=== PATIENT | male | born 1965 | race Caucasian/White ===

== ENCOUNTER 2016-10-24 14:08 | Emergency (ER) | payer OTHER ==
[~2016-10-24] VITALS: Ht 180.3 cm; Wt 138.6 kg
[2016-10-24 14:20] VITALS: BP 151/95; PULSE 91; RESP 20; O2SAT 98
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
[2016-10-24] MEDS ORDERED: Ketorolac 30 mg/mL 2 mL Inj IM ONE (16:45)
== END 2016-10-24 17:11 | disposition home or self-care (01) ==
LOC: SED 14:08 → EDBD 14:08 → EDUNIT# 14:08 → SED 17:11
DX: S93.402A Sprain of unspecified ligament of left ankle, initial encounter (principal); Y04.0XXA Assault by unarmed brawl or fight, initial encounter; Y92.009 Unspecified place in unspecified non-institutional (private) residence as the place of occurrence of the external cause; Y93.89 Activity, other specified; Y99.8 Other external cause status; E11.9 Type 2 diabetes mellitus without complications; F17.200 Nicotine dependence, unspecified, uncomplicated; Z98.890 Other specified postprocedural states
CPT/HCPCS: 73610; 96372; 99284; J1885

== ENCOUNTER 2016-10-27 15:41 | Emergency (ER) | payer OTHER ==
[~2016-10-27] VITALS: Ht 182.9 cm; Wt 138.6 kg
[2016-10-27 15:47] VITALS: BP 170/99; PULSE 90; RESP 20; O2SAT 96
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
[2016-10-27 17:25] LABS: BASOPHILS % (AUTO) 0.2 % (0-3); EOSINOPHILS % (AUTO) 0.2 % (0-5); MONOCYTES % (AUTO) 5.5 % (4-12); Mean Corpuscular Hemoglobin 32.4 pg (27.0-35.0); Mean Corpuscular Volume 94.1 fL (81-100); NEUTROPHILS % (AUTO) 74.8 % (40-74); Platelet Count 266 bil/L (150-400)
[2016-10-27 20:06] VITALS: BP 148/72; PULSE 78; RESP 16; O2SAT 95
[2016-10-27] MEDS ORDERED: PRAZ5CAP3 PO (23:42)
[2016-10-27] MEDS ORDERED: ALBU8.5H2 INHALATION (23:42)
[2016-10-27] MEDS ORDERED: IBUP400T22 PO (23:42)
[2016-10-27] MEDS ORDERED: PARO10OR3 PO (23:42)
[2016-10-27] MEDS ORDERED: QUET400T PO (23:42)
[2016-10-27] MEDS ORDERED: FLUT9.9S NS (23:42)
[2016-10-27] MEDS ORDERED: METF500T4 PO (23:42)
[2016-10-27] MEDS ORDERED: LAMO150T PO (23:42)
[2016-10-28] MEDS ORDERED: KLO1T PO (17:37)
[2016-10-28] MEDS ORDERED: PARO30TA4 PO (17:37)
[2016-10-28] MEDS ORDERED: GABA600T2 PO (17:40)
[2016-10-28] MEDS ORDERED: CYCL10TA9 PO (17:40)
[2016-10-28] MEDS ORDERED: IBUP800T28 PO (17:41)
== END 2016-10-27 20:08 | disposition home or self-care (01) ==
LOC: SED 15:41
DX: F43.0 Acute stress reaction (principal); R45.851 Suicidal ideations; E11.9 Type 2 diabetes mellitus without complications; F17.200 Nicotine dependence, unspecified, uncomplicated; Z59.0 Homelessness
CPT/HCPCS: 36415; 80053; 81002; 84443; 85025; 99284; G0480

== ENCOUNTER 2016-10-27 22:16 | Inpatient (IN) | payer MEDICAID, OTHER ==
[~2016-10-27] VITALS: Ht 185.4 cm; Wt 140.5 kg
[2016-10-27 22:22] VITALS: BP 184/99; PULSE 91; RESP 24; O2SAT 98
--- NOTE | 2016-10-27 22:34 | ED.REPORT ---
HPI-Overdose/Alcohol Toxicity Date of Service Oct 27, 2016 ED Provider: Caleb Mckenna DO Patient is a 51 year old male who was seen and discharged from the ED to the waiting room just hours earlier. When a personnel security assistant told him he could no longer stay in the waiting room, he opened his bottle of Seroquel and took approximately 15, 400 mg tablets while in the waiting room. He denies drinking but endorses smoking cigarettes. Nursing Notes Stated Complaint: SUICIDAL Chief Complaint: Psychiatric Complaint Nursing Notes Reviewed: Yes Allergies: Coded Allergies: No Known Allergies (Unverified , 07/06/16) Scheduled Fluticasone Propionate (Flonase Allergy Relief) 50 Mcg/Actuation Minetto.susp 1 SPRAY NS DAILY Lamotrigine (Lamictal) 150 Mg Tablet 150 MG PO BID Metformin (Metformin) 500 Mg Tablet 500 MG PO BIDWM Paroxetine (Paxil) 10 Mg/5 Ml Oral.susp 30 MG PO MORNING Prazosin (Prazosin) 5 Mg Capsule 5 MG PO HS Quetiapine Fumarate (Seroquel) 400 Mg Tablet 400 MG PO HS Scheduled PRN Albuterol HFA (Proair HFA) 8.5 Gm Hfa.aer.ad 2 PUFFS INHALATION Q4H PRN PRN For Shortness of Breath Ibuprofen (Ibuprofen) 400 Mg Tablet 400 MG PO QID PRN PRN For Pain General Time Seen by Provider: 22:32 Chief Complaint Ingestion, drug and amt Hx Obtained From: Patient Arrived By: Walk-in Onset Occurred: Just prior to arrival Recent Healthcare: Recent doctor visit Past Medical History Past Medical History Notes: ankle surgery Past Medical History Mental health Reports: Diabetes mellitus Past Surgical History ankle surgery L leg repair x2 Smoking History Current Every Day Smoker Social History does [facility] Alcohol Use: Denies alcohol use Drug Use: THC Occupation no work or school, lives with roommate,1 step into the house. Ambulatory Status Crutches Review of Systems Unable to Obtain ROS Mental status Physical Exam Initial Vital Signs Vital Signs (First) Date Time Temp Pulse Resp B/P Pulse Ox O2 Delivery O2 Flow Rate FiO2 10/27/16 22:22 36.9 91 24 184/99 98 Room Air Initial VS: Reviewed Head / Eyes: Atraumatic, Normocephalic Neck: Full range of motion Alertness: Positive: Somnolent Appearance / Presentation: Positive: Obese, Toxic appearing Hypotensive Respiratory / Chest: Atraumatic Heart Rate / Rhythm: Positive: Tachycardia Abdomen: Soft, Non-tender Mental Status: Positive: Somnolent Abnormal Thinking / Perception: Positive: Suicidal, with plan Patient consumed approx. 15, 600 mg seroquel Color / Condition: Positive: Diaphoresis present Interpretation & Diagnostics Lab Results Interpretation Result Diagram: 10/27/16224410/27/162244 Test 10/27/16 22:45 10/27/16 23:55 White Blood Count 9.3th/mm3 (3.8-10.1) Red Blood Count 5.16mil/mm3 (4.40-5.80) Hemoglobin 16.4g/dL (13.8-17.2) Hematocrit 48.0% (41.0-50.0) Mean Corpuscular Volume 93.0fL (81-100) Mean Corpuscular Hemoglobin 31.8pg (27.0-35.0) Mean Corpuscular Hemoglobin Concent 34.2% (32.0-37.0) Red Cell Distribution Width 13.4% (12.3-15.4) Platelet Count 278bil/L (150-400) Sodium Level 138mEq/L (134-144) Potassium Level 4.1mEq/L (3.5-5.2) Chloride Level 98mEq/L (97-108) Carbon Dioxide Level 23mmol/L (18-29) Blood Urea Nitrogen 17mg/dL (6-24) Creatinine 0.96mg/dL (0.76-1.27) Estimat Glomerular Filtration Rate 88mL/min (>59) Glucose Level 128mg/dL (60-99) Calcium Level 9.4mg/dL (8.5-10.1) Total Bilirubin 0.3mg/dL (0.0-1.2) Aspartate Amino Transf (AST/SGOT) 20U/L (0-50) Alanine Aminotransferase (ALT/SGPT) 26U/L (0-44) Alkaline Phosphatase 72U/L (25-150) Total Protein 7.8g/dL (6.4-8.4) Albumin 4.8g/dL (3.4-5.0) Salicylates Level 3.0ug/mL (30-250) Acetaminophen Level 15.0ug/mL Rx (10-25) Alcohol, Quantitative < 10mg/dL (0-10) Hold Urine Received (Received) ECG Interpretation ECG Interpretation: sinus tachycardia rate 126 QTC 504 Time: 22:52 Interpreted by: ED physician ABG Interpretation ABG Interpretation: pH 7.290 pCO2 46 pO2 91.8 cHCO3- 21.2 cBase -4.9 Exam Performed by: Allied health pract Exam Interpreted by: ED physician Procedures Intubation Time: 23:18 Procedure Performed by: ED physician Consent / Setup / Site Prep: No consent - emergent, Time-out performed, Oxygen administered, Pulse oximeter applied, cardiac monitor applied, Hand hygiene observed Patient Position: Sniff position Blade / ET Tube / Route: Greenwood scope Procedural Sedation/Analgesia: Sedation: Ketamine Neuromuscular Agent: Rocuronium ET Confirmation: BS equal, CXR Secured / Marked: Tube marked at ___ cm (24), Tube marked at teeth Complications: None Post-Procedure: Condition improved, Tolerated procedure well, Patient stable Re-Eval/Medical Decision Med Decision/Clinical Course Intentional Seroquel overdose has reported suicide attempt. Intubated due to rapid decline in mental status as well as vital sign instability, persistent tachycardia and hypotension. Hypotension and tachycardia improved after IV fluid therapy. Patient was intubated with ketamine and rocuronium. The plan will be to admit or transfer this patient for ongoing hemodynamic monitoring and clearance of his Seroquel. Re-Evaluation/Progress #1: Time of Eval: 23:04 Re-Evaluation/Progress Note: Rechecked patient. Pressure of 68. Re-Evaluation/Progress #2: Time of Eval: 23:53 Re-Evaluation/Progress Note: Rechecked patient. He is tolerating intubation well. Re-Evaluation/Progress #3: Time of Eval: 00:15 Re-Evaluation/Progress Note: Blood pressure 96 systolic heart rate down to 1:15, resting comfortably, will continue IV fluid therapy. Discharge & Departure Shift Change Sign-Out Patient Care Transferred: Yes Discussed Complaint(s): Yes Laboratory Evaluation: Ordered, not yet done Imaging Studies: Done, reviewed by me Additonal Information: Transfer of care to Dr. Lozada at 0015 Impression: Primary Impression: Suicide attempt by drug ingestion Additional Impression: Respiratory failure Referrals: [facility] ([facility]) Care Transferred to: [facility] Transferred at: 00:20 Crit Care Except Billable Proc Time Spent: 30-74 minutes Services Performed: Patient management by me, Time spent at bedside, Reviewing test results Critical Care Notes: acute overdose, intubated Scribe Attestation Portions of this note were transcribed by Fran Mulligan. I, Dr. Mckenna personally performed the history, physical exam and medical decision-making; I reviewed and confirmed the accuracy of the information in the transcribed note. Signed by: Fran Mulligan 10/28/2016, 0031 copies to: [facility] Caleb Mckenna DO Oct 27, 2016 22:34 FRAN MULLIGAN Oct 27, 2016 22:49
[2016-10-27] MEDS ORDERED: 0.9% Sodium Chloride 1,000 ML IV ONE ×2 (22:37→22:40)
[2016-10-27 22:54] LABS: Mean Corpuscular Hemoglobin 31.8 pg (27.0-35.0)
[2016-10-27] MEDS ORDERED: Benztropine 1 mg/mL 2 mL Inj IV ONE (23:05)
[2016-10-27] MEDS ORDERED: Ketamine 100 mg/mL 5 mL Inj IV ONE (23:10)
[2016-10-27] MEDS ORDERED: fentaNYL-PF 50 mCg/mL 2 mL Inj ONE (23:19)
[2016-10-27] MEDS ORDERED: fentaNYL 2,500 mCg/250 mL 2,500 MCG in IV Premix 1 EACH IV SCH (23:25)
[2016-10-27 23:30] VITALS: BP 108/54; PULSE 128; RESP 20; O2SAT 95
--- NOTE | 2016-10-27 23:41 | ABG ---
DateTimeAnalyzed 23:35:00 -_ pH ____7.290 - 7.350 7.450 pCO2 ___45.6__ -mmHg 35.0 45.0 pO2 ___91.8__ -mmHg 69.0 116 HCO3- ___21.2__ -mmol/L 22.0 26.0 ABE ___-4.9__ -mmol/L -2.0 2.0 tHb ___13.5__ -g/dL O2Hb ___91.2__ -% COHb ____5.3__ -% MetHb ____0.9__ -% sO2 ___97.2__ -% 25.0 FIO2 ___50.0__ -% PEEP ____5.0__ -cmH2O Set_RR ___20.0__ -b/min Vt __540.0__ -L Drawn By MK - Date/Time Notified____ 23:40:00 -_ Spontaneous_RR ___20.0__ -b/min Oxygen Device 1 VENTILATOR - Notified Whom dr oliva - B 763 -mmHg tO2 ___17.4__ -Vol% OrderingPhysicianInitials CR - Kushal test _Positive -
[2016-10-27] MEDS ORDERED: PARO10OR3 PO (23:42)
[2016-10-27] MEDS ORDERED: PRAZ5CAP3 PO (23:42)
[2016-10-27] MEDS ORDERED: ALBU8.5H2 INHALATION (23:42)
[2016-10-27] MEDS ORDERED: LAMO150T PO (23:42)
[2016-10-27] MEDS ORDERED: METF500T4 PO (23:42)
[2016-10-27] MEDS ORDERED: IBUP400T22 PO (23:42)
[2016-10-27] MEDS ORDERED: QUET400T PO (23:42)
[2016-10-27] MEDS ORDERED: FLUT9.9S NS (23:42)
[2016-10-27 23:59] VITALS: BP 89/43; PULSE 121; RESP 20; O2SAT 96
[2016-10-28] VITALS (21 sets, daily range): BP systolic 75–155; BP diastolic 45–90; PULSE 81–135; RESP 16–20; O2SAT 96–100
[2016-10-28] MEDS: 0.9% Sodium Chloride 1,000 ML IV SCH ×4 (00:09→23:53)
[2016-10-28] MEDS ORDERED: Propofol 10,000 mCg/mL 100 mL Inj ONE (01:19)
[2016-10-28] MEDS: Midazolam Inj 100 MG in IV Premix 1 EACH IV PRN ×2 (01:35→19:14)
[2016-10-28] MEDS: Norepineph 8,000 mCg/250 mL NS 8,000 MCG in IV Premix 1 EACH IV SCH ×2 (04:20→19:10)
[2016-10-28 05:54] LABS: APPEARANCE,URINE CLOUDY (CLEAR,HAZY); COLOR,URINE YELLOW (YELLOW); OCCULT BLOOD,URINE NEGATIVE (NEGATIVE); PH,URINE 5.5 (5.0-8.0); UROBILINOGEN,URINE NORMAL (NORMAL)
[2016-10-28] MEDS ORDERED: Rocuronium 10 mg/mL 5 mL Inj ONE (06:31)
[2016-10-28] MEDS ORDERED: Ketamine 10 mg/mL 20 mL Inj ONE (06:31)
--- NOTE | 2016-10-28 06:59 | NUR ---
Pt admitted to CCU at 0650hrs from ER Pt arrived from ER, is intubated, on the vent, FIO2 50%, PEEP 5 RR 20 TV 500. He is sedated on versed and fentanyl. HR is 94 SR RR 20, Sats 97% BP 92/51. He is restrained to protect lines and airway. Majano is insitu, as is OG.
[2016-10-28] MEDS ORDERED: 0.9% Sodium Chloride 500 ML IV PRN ×2 (07:29→09:35)
[2016-10-28] MEDS ORDERED: fentaNYL 2,500 mCg/250 mL 2,500 MCG in IV Premix 1 EACH IV PRN (07:29)
[2016-10-28] MEDS ORDERED: Ondansetron 2 mg/mL 2 mL Inj IVPUSH PRN (07:30)
[2016-10-28] MEDS ORDERED: Alum-Mag Hydrox-Simeth 30 mL Suspension PO PRN (07:30)
[2016-10-28] MEDS ORDERED: Senna-Docusate 8.6-50 mg Tablet PO PRN (07:30)
[2016-10-28] MEDS ORDERED: Polyethylene Glycol (PEG) 17 Gm Powder PO PRN (07:30)
[2016-10-28] MEDS ORDERED: fentaNYL-PF 50 mCg/mL 2 mL Inj IVPUSH PRN (07:30)
--- NOTE | 2016-10-28 08:11 | ABG ---
DateTimeAnalyzed 08:04:00 -_ pH ____7.354 - 7.350 7.450 pCO2 ___38.8__ -mmHg 35.0 45.0 pO2 146 -mmHg 69.0 116 HCO3- ___21.1__ -mmol/L 22.0 26.0 ABE ___-3.5__ -mmol/L -2.0 2.0 tHb ___13.0__ -g/dL O2Hb ___96.1__ -% COHb ____2.0__ -% MetHb ____1.0__ -% sO2 ___99.1__ -% 25.0 FIO2 ___45.0__ -% PEEP ____5.0__ -cmH2O Vt __550.0__ -L Drawn By RC - Date/Time Notified____ 08:10:00 -_ Spontaneous_RR ___18.0__ -b/min Oxygen Device 1 VENTILATOR - Notified By RC - Notified Whom CARLOS,HIEU MD -___ B 764 -mmHg tO2 ___17.8__ -Vol% Kushal test _Positive -
[2016-10-28] MEDS ORDERED: Famotidine Inj 50 ML IV SCH ×2 (08:30→09:32)
[2016-10-28] MEDS ORDERED: 0.9% Sodium Chloride 500 ML ONE (08:49)
--- NOTE | 2016-10-28 08:51 | DRSVH ---
PROCEDURE: X-RAY CHEST ONE VIEW, PORTABLE ([id number]) INDICATIONS: intubation TECHNIQUE: One view of the chest was acquired. COMPARISON: [facility], CR, XR CHEST 1VW (PORTABLE), 10/28/2016, 3:48. FINDINGS: Surgical changes and devices: ETT is in place tip projected 3.4 cm above the cheli. Lungs and pleura: Lung volumes are low the interstitium is prominent. No focal consolidation, pleura l effusion or pneumothorax. Mediastinum: Mediastinal contours appear normal. Heart size is normal. Bones and chest wall: No suspicious bony lesions. Overlying soft tissues appear unremarkable. IMPRESSION: 1. Placement of ETT. 2. Lung volumes are low interstitium is prominent. Developing mild edema cannot be excluded. Dictated by: Collins QUINTANA Interpreted: Gi Sanchez MD on 10/28/2016 at 8:49 Transcribed by: ORQUIDEA on 10/28/2016 at 8:50 Approved by: iG Sanchez M.D. on 10/28/2016 at 16:48
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
[2016-10-28] MEDS: Chlorhexidine 0.12% 15 mL Oral Solution MT SCH ×5 (10:24→23:53)
[2016-10-28] MEDS ORDERED: Sodium Chloride LOK Flush 10 mL Syringe IVFLUSH PRN ×2 (10:50)
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
--- NOTE | 2016-10-28 12:16 | NUR ---
Social Work: Screen D: Per EMR review, pt is a 51 year old male admitted for Seroquel overdose/Respiratory Failure. Pt is [facility] HO with [facility] Medicaid insurance. PCP is through [facility]. NOK is not listed. Advanced directives not on file. Readmit score not entered at this time. Pt was seen in [facility] ED on 10/27 by ED COMMUNITY DEVELOPMENT AIDE making vague statements about being suicidal however due to pt's lack of plan and imminent danger to self or others, pt was discharged. Pt was asked to leave by security and then intentionally ingested approximately 15, 400 mg tablets of Seroquel. Pt admitted with CCU and currently on mechanical ventilation after intentional overdose of Seroquel in the [facility] ED waiting area. Pt was recently kicked out of his home. Per ED COMMUNITY DEVELOPMENT AIDE note, pt's suicidality appeared to focus around housing issues however pt was not cooperative with COMMUNITY DEVELOPMENT AIDE's attempts to problem solve pt's issues with housing. See ED COMMUNITY DEVELOPMENT AIDE Neeraj hTomas's note from 10/27 for more information. A: Pt who is I at baseline; newly homeless P: Evolving; COMMUNITY DEVELOPMENT AIDE to follow up with pt post-extubation to provide resources and to complete discharge planning. ROGELIO Mccauley
--- NOTE | 2016-10-28 13:54 | NUR ---
NUTRITION ASSESSMENT Assess: 51 yo male admitted for overdosing on Seroquel. Pt was intubated in the ED d/t concern over lethargy and potential aspiration. Pt given charcoal. PMHx: No medical history available at this time. LABS: Gluc 128 MEDICATIONS: Norepi, Fentanyl DIET: NPO GI symptoms/stool: 0 BM recorded Skin integrity: Wilman 13 - No skin issues noted. ANTHROPOMETRICS: Current Wt: 144.3 kg BMI: 42.0 kg/m2 IBW: 80.9 kg ESTIMATED NEEDS: Vented Calories: 7689-3169 kcal/day (20-22 kcal/kg BW) Protein: 125-150 g/day (1.5-1.8 g/kg BW) Fluids: Approximately 1399-7456 ml/day (Approx. 1 ml/kcal/day) NUTRITION DIAGNOSIS: 1) Inadequate oral intake related to inability to consume sufficient energy as evidenced by current vent and NPO status. INTERVENTION: 1) Will recommend starting nutrition support if pt remains vented another 24-48 hrs. 2) If extubated, will follow dietary recommendations per ST. MONITOR/EVALUATE: NPO/vent status, GI, medications, wt, nutrition status, POC. Will continue to monitor per high nutritional risk guidelines. Addendum: 10/28/16 at [address] Student documentation reviewed and I agree with the above assessment. Helena Lerner, MS, RDN, CD
--- NOTE | 2016-10-28 14:00 | DRSVH ---
PROCEDURE: X-RAY CHEST ONE VIEW ([id number]) INDICATIONS: Catheter tip placement TECHNIQUE: One view of the chest was acquired. COMPARISON: [facility], CR, XR CHEST 1VW (PORTABLE), 10/28/2016, 3:48. FINDINGS: Surgical changes and devices: ETT tip projects 4.2 cm above the cheli. Nasogastric tube tip not wel l-seen but appears to traverse the GE junction. Right IJ CVL catheter tip projected over the mid sup erior vena cava Lungs and pleura: No pleural effusions or pneumothorax. Interstitium is prominent similar to prior examination. Mediastinum: Mediastinal contours appear normal. Heart size is normal. Bones and chest wall: No suspicious bony lesions. Overlying soft tissues appear unremarkable. IMPRESSION: 1. Support lines and tubes as above. 2. Interstitial opacity similar to prior examination suspect for mild pulmonary edema. Dictated by: Collins May RRA Interpreted: Gi Sanchez MD on 10/28/2016 at 13:58 Transcribed by: ORQUIDEA on 10/28/2016 at 14:00 Approved by: Gi Sanchez M.D. on 10/28/2016 at 17:04
--- NOTE | 2016-10-28 14:37 | NUR ---
OGT MDs wanted OGT to remain clamped, no to LIS. Discussed in rounds this morning.
--- NOTE | 2016-10-28 15:08 | PCM.HPMED ---
Subjective Date of Service Oct 28, 2016 Primary Provider: Admitting Physician: Erasmo Fernandez MD Primary Care Physician: [facility] Attending Physician: Erasmo Fernandez MD Admit Status: From the Emergency Department, Admit to [facility] Team Chief Complaint: 51-year-old male with chronic schizophrenia and homelessness presents with suicide gesture and acute toxic encephalopathy due to overdose of Seroquel, intubated for airway protection History of Present Illness: The patient presented to the emergency department on 10/28 with a complaints. He was assessed by emergency physician found to have no significant indication for hospitalization. He was upset about being discharged. He returned to the parking lot and was witnessed to ingest a bottle of pills. On closer examination he seems to have ingested 15 tablets of 200 mg Seroquel. He was treated emergently in the emergency department with gastric lavage and charcoal but developed acute encephalopathy with obtundation and hypotension. He was intubated for airway protection. He has required aggressive hydration and vasopressors for hemodynamic stability. Patient is unable to give history or review of systems. There are no family members or friends in attendance. Review of Systems: Patient unable to perform. Allergies Coded Allergies: No Known Allergies (Unverified , 07/06/16) Home Medications Albuterol inhaler Fluticasone nasal spray Ibuprofen when necessary Lamotrigine 150 mg twice a day Metformin 500 mg twice a day Paroxetine 30 mg daily Presence and 5 mg every at bedtime Quetiapine 400 mg daily at bedtime PMH # Type II diabetes mellitus - metformin # Suicide gesture - emergency department assessment for benzodiazepine overdose in 2016 # Psychiatric disorder of uncertain type - on antidepressant and antipsychotic medication # Lamotrigine use - presumed seizure disorder # Tobacco use disorder Family History Unobtainable Social History Smoking Status: Current Every Day Smoker Exam Vital Signs Vital Sign - Last Date Time Temp Pulse Resp B/P Pulse Ox O2 Delivery O2 Flow Rate FiO2 10/28/16 12:30 80 98/56 99 35 10/28/16 12:00 36.8 16 Mechanical Ventilator Intake and Output 10/27/16 10/27/16 10/28/16 Cumulative From/Thru 15:00 23:00 07:00 10/27/16 22:22 - 10/28/16 06:23 Intake Total 4000 ml 4000 ml Output Total 600 ml 600 ml Balance 3400 ml 3400 ml Intake IV Total 4000 ml 4000 ml Output Urine Total 600 ml 600 ml Exam General: Class III obesity, sedated in no acute distress HEENT: sclerae anicteric, oral mucosa moist Neck: Supple, no adenopathy Chest: Right subclavian CVC, Lungs: Generally clear to auscultation Cardiac: S1S2, no murmur Abdomen: BS normal, no rigidity or mass Extremities: 1+ edema of hands, none at ankles Neuro: Sedated unresponsive, pupils 2 mm do not constrict, reflexes diminished throughout, strength, coordination and sensory non-testable Lab and Diagnostics Labs Urine specific gravity 1.030, pH 5.5 Arterial blood gases: DateTimeAnalyzed 23:35:00 -_ pH ____7.290 - 7.350 7.450 pCO2 ___45.6__ -mmHg 35.0 45.0 pO2 ___91.8__ -mmHg 69.0 116 HCO3- ___21.2__ -mmol/L 22.0 26.0 ABE ___-4.9__ -mmol/L -2.0 2.0 tHb ___13.5__ -g/dL O2Hb ___91.2__ -% COHb ____5.3__ -% MetHb ____0.9__ -% sO2 ___97.2__ -% 25.0 FIO2 ___50.0__ -% DateTimeAnalyzed 08:04:00 -_ pH ____7.354 - 7.350 7.450 pCO2 ___38.8__ -mmHg 35.0 45.0 pO2 146 -mmHg 69.0 116 HCO3- ___21.1__ -mmol/L 22.0 26.0 ABE ___-3.5__ -mmol/L -2.0 2.0 tHb ___13.0__ -g/dL O2Hb ___96.1__ -% COHb ____2.0__ -% MetHb ____1.0__ -% sO2 ___99.1__ -% 25.0 FIO2 ___45.0__ -% . Result Diagram: 10/27/16224410/27/162244 X-Rays, CTs and MRIs PROCEDURE: X-RAY CHEST ONE VIEW, PORTABLE ([id number]) IMPRESSION: 1. Placement of ETT. 2. Lung volumes are low interstitium is prominent. Developing mild edema cannot be excluded. Dictated by: Collins QUINTANA Interpreted: Gi Sanchez MD on 10/28/2016 at 8:49 PROCEDURE: X-RAY CHEST ONE VIEW ([id number]) IMPRESSION: 1. Support lines and tubes as above, the right IJ CVL tube tip is again not well -seen. 2. Interstitial opacity similar to prior examination suspect for mild pulmonary edema. Dictated by: Collins QUINTANA Interpreted: Gi Sanchez MD on 10/28/2016 at 13: 58 . 12-lead ECG Sinus rhythm rate 80. Low voltage. VT interval 0.14. QTC reported 539, but T waves are poorly defined. Assessment & Plan 51-year-old man with probable chronic schizophrenia resents with suicide gesture and acute toxic encephalopathy due to quetiapine overdose # Toxic encephalopathy, acute. Quetiapine notorious for respiratory depression and hypotension. Gonzales pharmacology is alpha adrenergic blockade (hypotension) and anticholinergic effects (encephalopathy, visual disturbance, gut hypomotility, hyperthermia, urine retention, tachycardia), dopaminergic blockade (neuroleptic malignant, neuromuscular effects). Treatment is supportive. Activated charcoal was administered. Gastric lavage performed an EGD. - Monitor neurological status - Daily sedation holiday # Toxic respiratory depression, acute. - Intubation for respiratory airway protection - Pulmonary consult to management ventilator settings and progress toward breathing trials # Acute hypotension due to toxic autonomic dysfunction, acute. Blood pressure was 75/52. Subsequently received 6 L of fluid hydration. Initiated norepinephrine pressor support. - Continue aggressive crystalloid replacement - Continue norepinephrine, titrate pressors as tolerated - Monitor urine output; Majano catheter when necessary to maintain accurate I's and O's # Type II diabetes mellitus - Every 6 hours blood glucose; goal 140-200 - Correctional regular insulin at present - Switched to basal bolus when clinically stable # Psychiatry, Suicide gesture - Plan mental health assessment when patient has convalescent - hold psych meds # Possible QT prolongation. Current EKG is nondiagnostic due to low voltage. Typing is low risk for QTC prolongation related dysrhythmia - Telemetry monitoring - Avoid other QT prolonging drugs # Tobacco use - Nicotine patch # Possible seizure disorder - continue lamotrigine # Obesity class III - Appropriate nursing care and interventions # VTE prophylaxis - enoxaparin # Gastric prophylaxis - famotidine CODE STATUS is full. Patient is admitted to inpatient status in the the critical care unit due to acute respiratory failure and hypotension. Expected duration of inpatient care is greater than 48 hours. GI Prophylaxis: H2 lydia VTE Prophylaxis: Sub-Q Enoxaparin VTE Mechanical Devices: Intermittant Pneumatic CD Resuscitation Status: CPR: Attempt Resuscitation Time spent 60 minutes, personal review of radiology and EKG data, review of data with consultants. Scout Valente MD Oct 28, 2016 15:08
--- NOTE | 2016-10-28 16:00 | NUR ---
Sedation Increased Versed and Fentanyl due to patient waking with nursing care/turning and being extremely agitated. Kicking, pulling, and attempting to pull ET tube.
--- NOTE | 2016-10-28 16:10 | NUR ---
Diaphoretic Patient sweating at rest worsening with agitation. Cold cloth to forehead, fan on, and covers removed. Effective.
[2016-10-28] MEDS ORDERED: KLO1T PO (17:37)
[2016-10-28] MEDS ORDERED: PARO30TA4 PO (17:37)
[2016-10-28] MEDS ORDERED: CYCL10TA9 PO (17:40)
[2016-10-28] MEDS ORDERED: GABA600T2 PO (17:40)
[2016-10-28] MEDS ORDERED: IBUP800T28 PO (17:41)
--- NOTE | 2016-10-28 17:42 | NUR ---
Med rec Med rec completed based on [facility] report of recent meds pt. picked up since mid September. Of note, Clonazepam, gabapentin and cyclobenzaprine were added, and ibuprofen dose was changed from 400-800mg. I am unable to verify what pt. actually takes at home as he is nonverbal at present.
--- NOTE | 2016-10-28 17:46 | NUR ---
PCP PCP seems to be Radha Lobo - according to Pharmacy as most frequent prescriber. Phone number is [phone] according to [facility] records.
[2016-10-28] MEDS: lamoTRIgine 100 mg Tablet PO SCH (20:28)
[2016-10-28] MEDS: Insulin Human REGular 300 Unit/3 mL Inj SUBQ SCH (20:30)
[2016-10-28] MEDS ORDERED: Albuterol 2.5 mg/3 mL Inhalation Solution NEB PRN (21:55)
[2016-10-29] VITALS (10 sets, daily range): BP systolic 96–148; BP diastolic 55–85; PULSE 82–100; RESP 15–22; O2SAT 92–99
[2016-10-29] MEDS: Insulin Human REGular 300 Unit/3 mL Inj SUBQ SCH ×4 (02:30→17:16)
[2016-10-29] MEDS: Chlorhexidine 0.12% 15 mL Oral Solution MT SCH ×2 (04:13→07:51)
--- NOTE | 2016-10-29 04:29 | NUR ---
vent/sedation on initial assessment pt on versed gtt at 5mg/hr and fentanyl gtt at 100mcg/hr, pt lightly sedated on these sedation amounts, pt with strong cough/fights oral care/twists head back and forth/kei with small amounts of stimulation, pt very strong and at 2130 pt kicked foot board so hard it came dislodged from its place at foot of bed, pt was flushed red and pt fighting vent/pounding on side rails with hands and sliding down towards right end of bed, pt given 4mg versed bolus and fentanyl gtt increased to 150mcg/hr, pt still lightly sedated and awakens and fights oral care etc with sml amount of stimulation but if left alone pt remains calm, plan/order for sedation vacation and PS trial bid, will attempt to wean meds this am again, tele sr, bp low normal,see measurements on rhythm strips, adequate uop per f/c-rosita uop, cvp=11-16, ogt to lis with initial assessment, approx 100ml charcoal output noted, pharmacy states ok to have ogt to lis since charcoal only effective for so many hours, ogt placement=wnl, hob up, no bm, abd round/soft, bt present, .35 fio2 per vent, sats upper 90's, hob up, resp rate 16-20/16, ls course, sx sml amount of creamy sputum per ett, oral care done as pt tolerated, see ccu flow sheet and assessment charting, plan:decrease sedation and do ps trial
--- NOTE | 2016-10-29 06:18 | NUR ---
tital volumes pt over breathing vent this am, resp rate = 16-, tital volumes 500-600,
[2016-10-29] MEDS: lamoTRIgine 100 mg Tablet PO SCH ×2 (07:50→22:18)
[2016-10-29] MEDS: 0.9% Sodium Chloride 1,000 ML IV SCH ×2 (09:45→19:59)
--- NOTE | 2016-10-29 10:14 | ABG ---
DateTimeAnalyzed 10:08:00 -_ pH ____7.348 - 7.350 7.450 pCO2 ___45.3__ -mmHg 35.0 45.0 pO2 ___84.8__ -mmHg 69.0 116 HCO3- ___24.2__ -mmol/L 22.0 26.0 ABE ___-1.1__ -mmol/L -2.0 2.0 tHb ___12.7__ -g/dL O2Hb ___94.8__ -% COHb ____1.6__ -% MetHb ____1.0__ -% sO2 ___97.3__ -% 25.0 FIO2 ___35.0__ -% Pressure_Support ____5.0__ -cmH2O PEEP ____5.0__ -cmH2O Vt __550.0__ -L Drawn By NB - Date/Time Notified____ 10:13:00 -_ Spontaneous_RR ___16.0__ -b/min Oxygen Device 1 VENTILATOR - Notified By nb - Notified Whom ___Parimi - B 762 -mmHg tO2 ___17.0__ -Vol%
--- NOTE | 2016-10-29 11:16 | PROG NOTE ---
[address] [address] PROGRESS NOTE PATIENT: DEYSI SANDOVAL : 1965 MR#: [id number] ADMIT: 10/28/2016 JOB ID: [id number] DATE: 10/29/2016 PULMONARY CRITICAL CARE PROGRESS NOTE: IDENTIFYING STATEMENT: The patient is a 51-year-old man with history of homelessness and schizophrenia, admitted to the ICU with respiratory failure following an intentional Seroquel overdose. INTERVAL HISTORY: He is wide awake this morning, on minimal sedation, doing well on his spontaneous breathing trial. REVIEW OF SYSTEMS: Unable to obtain. PHYSICAL EXAMINATION: Vital signs reviewed. T-max is 37.7, pulse 88, respirations 16, BP 112/69, sats 97% on 35% FiO2. General: He is awake, eyes open, trying to follow commands but he is coughing a lot. Currently on spontaneous breathing trial. Chest is clear to auscultation. LABORATORIES: Reviewed from October 27. No labs have been checked since. Cultures negative on sputum and MRSA nasal swab. Chest x-ray reviewed and shows no focal abnormality. Arterial blood gas at the end of his spontaneous breathing trial showed pH of 7.34, pCO2 of 45, pO2 of 84, bicarb of 24. ASSESSMENT AND RECOMMENDATIONS: 1. Acute hypoxic respiratory failure. 2. Intentional Seroquel overdose. 3. Chronic schizophrenia. 4. Shock-resolved A 51-year-old man who is homeless with history of chronic schizophrenia with intentional Seroquel overdose on October 28, intubated subsequently for airway protection. He was on pressors briefly but this has resolved. He seems to have recovered from a neurologic standpoint, and is currently wide awake, passing a spontaneous breathing trial. Blood gas on spontaneous breathing trial looks great. We will go ahead and extubate him. We will see how he does postextubation and treat him as needed for any symptoms off psychosis or delirium. If he is stable otherwise, he may be okay to transfer to the floor later today or tomorrow. He is on appropriate deep venous thrombosis and gastrointestinal prophylaxis but certainly, the gastrointestinal prophylaxis can be stopped once he is extubated. CRITICAL CARE TIME: 35 minutes. [facility]
--- NOTE | 2016-10-29 11:33 | NUR ---
Evaluation completed. Please go to "Notes" then click on "Assessments and Notes" (bottom left corner of screen). Then select appropriate discipline tab on top of screen.
--- NOTE | 2016-10-29 12:30 | NUR ---
NUTRITION FOLLOW-UP: Assess: 51 yo male admitted with intentional Seroquel overdose. Pt was intubated in the ED d/t concern of lethargy and potential aspiration. He was successfully extubated this morning; diet advanced to stimulation texture by Speech Therapy. PMHx: No medical history available at this time. LABS: Glu 128, A1c 6.5. MEDICATIONS: Norepi. DIET: Stimulation. PO intake not yet recorded. GI symptoms/stool: 0 BM recorded Skin integrity: Wilman 14 - No skin issues noted. ANTHROPOMETRICS: Current Wt: 143.8 kg BMI: 41.0 kg/m2 IBW: 80.9 kg ESTIMATED NEEDS: CCU, OBESITY: Calories: 8050-7910 kcal/day (20-22 kcal/kg BW) Protein: 125-150 g/day (1.5-1.8 g/kg BW) Fluids: Approximately 5812-1933 ml/day (Approx. 1 ml/kcal/day) NUTRITION DIAGNOSIS: 1) Inadequate oral intake related to inability to consume sufficient energy as evidenced by current vent and NPO status - IMPROVED WITH EXTUBATION, MINIMAL DIET ADVANCE. INTERVENTION: 1) Once diet advance, will add supplements to trays. MONITOR/EVALUATE: Diet advance, PO intake, GI, medications, wt, nutrition status, POC. Will continue to monitor per high nutritional risk guidelines.
--- NOTE | 2016-10-29 13:52 | NUR ---
Evaluation completed. Please go to "Notes" then click on "Assessments and Notes" (bottom left corner of screen). Then select appropriate discipline tab on top of screen.
--- NOTE | 2016-10-29 15:19 | PCM.PNMED ---
Subjective Date of Service Oct 29, 2016 Subjective 51-year-old man with chronic psychiatric disorder presents with suicide overdose attempt with antipsychotic medications He was extubated after approximately 24 hours of intubation, today. He continues to verbalize intention of self-harm. States he is emotionally distressed. Majano catheter removed today. He has not voided yet but feels ready to do so. No abdominal distention or pain. Feels he is passing flatus. Complains of left ankle pain, which was previously evaluated in the emergency department. Exam Vital Signs Vital Sign - Last Date Time Temp Pulse Resp B/P Pulse Ox O2 Delivery O2 Flow Rate FiO2 10/29/16 12:00 36.6 84 22 135/78 97 Nasal Cannula 3.00 10/29/16 07:32 35 Intake and Output 10/28/16 10/28/16 10/29/16 Cumulative From/Thru 15:00 23:00 07:00 10/27/16 22:22 - 10/29/16 06:33 Intake Total 1289 ml 1680 ml 6969 ml Output Total 400 ml 750 ml 1750 ml Balance 889 ml 930 ml 5219 ml Intake IV Total 1289 ml 1680 ml 6969 ml Output Urine Total 400 ml 650 ml 1650 ml Gastric Drainage Total 100 ml 100 ml # Bowel Movements 0 0 Exam General: Disheveled, obese man in outer emotional distress HEENT: sclerae anicteric, oral mucosa moist Neck: Supple, difficult to assess JVD Chest: Generally clear to auscultation Cardiac: S1S2, regular, no murmur Abdomen: BS diminished, non-tender Extremities: No pedal edema, trace hand edema edema Neuro: A&O, cranial nerves symmetric, motor strength 5/5, coordination normal, no rigidity IVs and Medications Medications Reviewed: Medications were reviewed in detail Lab and Diagnostics Hemoglobin A1c 6.5% Result Diagram: 10/27/16224410/27/162244 X-Rays, CTs and MRIs PROCEDURE: X-RAY CHEST ONE VIEW, PORTABLE ([id number]) IMPRESSION: 1. Placement of ETT. 2. Lung volumes are low interstitium is prominent. Developing mild edema cannot be excluded. Dictated by: Collins QUINTANA Interpreted: Gi Sanchez MD on 10/28/2016 at 8:49 PROCEDURE: X-RAY CHEST ONE VIEW ([id number]) IMPRESSION: 1. Support lines and tubes as above, the right IJ CVL tube tip is again not well -seen. 2. Interstitial opacity similar to prior examination suspect for mild pulmonary edema. Dictated by: Collins May RRA Interpreted: Gi Sanchez MD on 10/28/2016 at 13: 58 . 12-lead ECG Sinus rhythm rate 80. Low voltage. TX interval 0.14. QTC reported 539, but T waves are poorly defined. Assessment & Plan 51-year-old man with probable chronic schizophrenia resents with suicide gesture and acute toxic encephalopathy due to quetiapine overdose # Psychiatry, Suicide attempt. Patient continues with self-harm ideation. - Psychiatry consult request placed - hold paroxetine and Seroquel - Medically ready for discharge to psychiatric care # Possible QT prolongation. Current EKG is nondiagnostic due to low voltage. Quetiapine is low risk for QTC prolongation related dysrhythmia - Okay to discontinue QT monitoring # Left ankle degenerative arthritis, chronic. X-rays from initial emergency room visit negative for fracture. Ankle had prior surgery due to trauma. Currently experiencing significant DJD related ankle pain. - Topical diclofenac - Oral ibuprofen - No opioid analgesics - Psychotherapy for recommendations regarding ambulation Chronic, stable and/or resolving problems: # Toxic encephalopathy, acute. Quetiapine notorious for respiratory depression and hypotension. Gonzales pharmacology is alpha adrenergic blockade (hypotension) and anticholinergic effects (encephalopathy, visual disturbance, gut hypomotility, hyperthermia, urine retention, tachycardia), dopaminergic blockade (neuroleptic malignant, neuromuscular effects). Treatment is supportive. Activated charcoal was administered. Gastric lavage performed an EGD. He now appears mildly diaphoretic with active bowel tones and intact mental status - No evidence of anticholinergic syndrome. No evidence of neuroleptic malignant syndrome - Resolved # Toxic respiratory depression, acute. Intubation for respiratory airway protection for ~24 hours. -Resolved # Acute hypotension due to toxic autonomic dysfunction, acute. Blood pressure was 75/52. Subsequently received 6 L of fluid hydration. Initiated norepinephrine pressor support. - Resolved # Type II diabetes mellitus - Every 6 hours blood glucose; goal 140-200 - Correctional regular insulin at present - Switched to basal bolus when clinically stable # Tobacco use - Nicotine patch # Possible seizure disorder - continue lamotrigine # Obesity class III - Appropriate nursing care and interventions # VTE prophylaxis - enoxaparin # Gastric prophylaxis - discontinue famotidine CODE STATUS is full. Patient was admitted to inpatient status in the the critical care unit due to acute respiratory failure and hypotension. Medical problems are now resolved and he is medically ready for discharge to psychiatric care. GI Prophylaxis: H2 lydia VTE Prophylaxis: Sub-Q Enoxaparin VTE Mechanical Devices: Intermittant Pneumatic CD Resuscitation Status: CPR: Attempt Resuscitation Time spent 40 minutes including patient care assessment and discussion of data with field technical support consultant Scout Valente MD Oct 29, 2016 15:19
--- NOTE | 2016-10-29 15:22 | NUR ---
Mental Health Evaluation Wilson Thompson 10/29/2016 Reason for Hospitalization: Seroquel Overdose/Respiratory Failure Precipitating Problem: Pt is a 51 year old male who presented to [facility] ED on 10/27/16 with suicidal ideation and vague thoughts of overdose. Pt reported that he had just been kicked out of his apartment and served with a no-contact order for his ex-girlfriend. Pt was presented with options for housing including the [facility] and the homeless shelters in [facility]; Pt declined these options. Pt stated that if he were to be discharged "something bad would happen" although he did not disclose an active plan or intent. Pt did not appear to be appropriate for inpatient hospitalization as his requests appeared to be focused around housing. Pt was discharged and asked to leave the waiting area by security staff. At that point, pt states he intentionally ingested approximately 15 400mg Seroquel tablets in an attempt to commit suicide. Pt was intubated on 10/28 and placed on the Critical Care Unit. SENIOR CYTOTECHNOLOGIST met with pt at bedside. Pt was extubated today (10/29) and continues to disclose thoughts of suicide with an active plan to take more of his prescription medications. Pt states he has access to more medications at his sisters home. Pt declines to provide contact information for his sister and/or any friends or family that would be able to safety plan with him. Pt reports that he is worried about housing however he is also tired of feeling "constantly depressed and sad." Pt states that he is interested in voluntary hospitalization. Pt denies any homicidal ideations and denies auditory or visual hallucinations. Mental Status: Pt is alert and fully oriented. Pt sitting comfortably in a hospital bed; dressed in hospital gown. Pt is cooperative with assessment. Pt eye contact is appropriate. Speech is normal rate and rhythm although very hoarse due to recent intubation. Pt reports feeling depressed and suicidal. Thought processes appear to be clear and linear. Recent and remote memory appear to be intact. Pts insight and judgment is limited. Pt reports no changes in sleep over the last 3 months but has had decreased appetite, with no noted weight loss, due to depression. Psychiatric History: Pt reports three previous suicide attempts via intentional overdose. Pt reports no inpatient psychiatric hospitalizations after these attempts stating, "I was released to my property and supply officer" after his most recent attempt "in 2014." Pt states he engages in outpatient counseling at [facility] however cannot recall his counselors name. Per [facility] MIS check, pt is seen by Candice Willingham at [facility]. Pt has never had inpatient hospitalization. t/c to [facility] ([phone]); left message for Candice Willingham requesting return phone call to discuss pts care. Substance Use History: Pt denies any drug use or alcohol use. Pt was positive for THC during ED visit on 10/27 Legal History: Pt reports a history of care home time however does not report details to SENIOR CYTOTECHNOLOGIST. PT states his has no current legal charges or probation. Diagnosis: F32.9 Unspecified Depressive Disorder Pt reports being diagnosed with Bipolar with manic episodes. Disposition: 51 year old male who was intubated in CCU after an intentional overdose of Seroquel. Pt reporting to RN and SENIOR CYTOTECHNOLOGIST that he is still suicidal with active plan and intent to overdose on prescription medications. Pt reporting that he continues to feel depressed and hopeless over the thought of his current housing situation and feeling "constantly depressed". Pt is currently stating he would like voluntary inpatient psychiatric hospitalization for adjustments in medications. Pt is not medically stable for transfer to mental health unit however SENIOR CYTOTECHNOLOGIST notified the unit so that they can review for anticipated transfer over the weekend. ROGELIO Mccauley
--- NOTE | 2016-10-29 15:41 | NUR ---
Extubation.. Pt was lightened on sedation this am and able to do several hours on pressure support trial. Caio well and pt was extubated per orders at 1025. Initially was on a nasal cannula but has since pulled O2 off and Spo2 remains stable on room air. Had hoarseness post extubation but this is clearing and pt has been able to take stim diet without cough or choking noted. Has been impulsive to get OOB to bathroom. Pt was initially weak and shaky when working with PT but has since been mobile in his wheel chair and stood by sink to wash and brush teeth. Pt has been made PCC status.
--- NOTE | 2016-10-29 17:32 | NUR ---
Transfer.. Pt transferred to 2022. Belongings taken to new room and closet locked per security. When asked, pt states he still is scuicidal and his plan would be to do it with taking pills. Pt has been observed closely this shift with 1:1 picking crew supervisor. Now that pt has been moved, is on suicidal precautions with sitter present.
[2016-10-29] MEDS ORDERED: Glucose 40% Oral Gel 15 Gm Tube PO PRN (18:25)
[2016-10-29] MEDS ORDERED: Insulin GLARgine 100 Unit/mL Syringe SUBQ SCH (21:00)
[2016-10-29] MEDS: Insulin LISPRO 300 Unit/3 mL Inj SUBQ SCH (22:00)
--- NOTE | 2016-10-30 01:23 | NUR ---
P) Pain/Respiratory/Suicide Pt.'s behavior is pleasant and appropriate this shift, c/o chronic pain in ankle and back as well as throat pain from intubation, voice is hoarse and low with some light slurring, still has suicidal ideation. Lungs with coarse breath sounds and some scattered rales in the bases. Blood sugar was 144mg/dl at hs, pt. states he does not use insulin but takes one metformin BID. I) Consulted with Dr. Cannon and held Lantus 40 units this HS until we can confirm order with Dr. Valente as it is a large dose. Went over pulmonary hygiene. E) Resting quietly with eyes closed.
[2016-10-30 03:26] VITALS: BP 152/89; PULSE 76; RESP 20; O2SAT 95
[2016-10-30] MEDS: lamoTRIgine 100 mg Tablet PO SCH (08:10)
[2016-10-30] MEDS: Insulin LISPRO 300 Unit/3 mL Inj SUBQ SCH ×3 (08:23→17:30)
[2016-10-30 09:04] VITALS: BP 117/68; PULSE 74; RESP 20; O2SAT 96
[2016-10-30] MEDS: 0.9% Sodium Chloride 1,000 ML IV SCH (10:35)
--- NOTE | 2016-10-30 12:22 | NUR ---
Updated Mental Health Evaluation Wilson Thompson 10/30/2016 Reason for Hospitalization: Seroquel Overdose/Respiratory Failure Precipitating Problem: Pt admitted to [facility] after intentional overdose of Seroquel in attempt to commit suicide. Pt was intubated and placed in CCU. Pt extubated on 10/29/16 and continuing to report thoughts of suicide with an active plan to overdose on prescription medication. Please see my note from 10/29/2016 for more details on precipitating factors. Pt discussed in am rounds with . Pt is now medically stable for transfer to the [facility] if he still meets criteria for psychiatric hospitalization. Current Mental Status: POLYMERIZATION KETTLE OPERATOR met with pt again today to reassess pt for safety and suicidal ideation. Pt found lying supine in hospital bed. Pt continues to report active plan to commit suicide upon discharge. Pt states that he has prescription medications at his sisters home where his belongings are being stored. Pt continues to refuse to provide contact information for his sister and/or any other family members who would be willing to safety plan. Pt confirms that he sees Candice Willingham at [facility] in [place] but states he cannot keep himself safe until he could be seen for a follow up appointment with her or any other outpatient provider. Pt states outpatient MH counseling does not help him and that "I never get better. Im always depressed." Pt states that he is unable to contract for safety and would be going to his sisters to retrieve his medication if discharged from [facility]. Pt continues to report depressed mood. Pt with poor eye contact today and is more irritable with POLYMERIZATION KETTLE OPERATOR during follow up conversation. Pt reports very poor sleep overnight due to thoughts of suicide and hopelessness over current situation Disposition: Pt continues to endorse active thoughts of suicide with the intent to leave the hospital, go to his sisters home and obtain prescription medications and intentionally consume them in attempts to commit suicide. Due to the severity and impulsive nature of pts recent overdose and suicide attempt, pt's inability to contract for safety and/or be managed in a lesser restrictive setting and his continued thoughts of suicide with active plan, pt meets criteria for inpatient psychiatric hospitalization. Pt continues to be voluntary for hospitalization and willing to engage in daily therapy, groups and medication management while on the MH Unit. POLYMERIZATION KETTLE OPERATOR has alerted [facility] and requested they review the pt for voluntary admission. Pt is [facility] and will require bed cert once accepted. ROGELIO Mccauley
[2016-10-30] MEDS ORDERED: PARoxetine 20 mg Tablet PO SCH (12:29)
[2016-10-30 12:31] VITALS: BP 122/67; PULSE 78; RESP 18; O2SAT 96
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
--- NOTE | 2016-10-30 16:14 | NUR ---
Transfer Pt was transferred to Mental Health at 1600 by security and myself. All belongings taken with and handed over to mental health Mitch. Report given to Elena BARNHART around 1500. Pt A&Ox3, Vitals stable. Medications and chart given to Mental Health staff.
--- NOTE | 2016-10-30 16:21 | PCM.PNMED ---
Subjective Date of Service Oct 30, 2016 Subjective 51-year-old man with chronic psychiatric disorder presents with suicide overdose attempt with antipsychotic medications He was extubated after approximately 24 hours of intubation, today. He continues to verbalize intention of self-harm. He seems medically stable at this time. Complains of left ankle pain, which is a chronic complaints, previously evaluated in the emergency department. Exam Vital Signs Vital Sign - Last Date Time Temp Pulse Resp B/P Pulse Ox O2 Delivery O2 Flow Rate FiO2 10/30/16 12:31 36.7 78 18 122/67 96 Room Air 10/29/16 16:00 3.00 10/29/16 07:32 35 Intake and Output 10/29/16 10/29/16 10/30/16 Cumulative From/Thru 15:00 23:00 07:00 10/27/16 22:22 - 10/30/16 06:22 Intake Total 1857 ml 1819 ml 61495 ml Output Total 550 ml 2700 ml 5000 ml Balance 1307 ml -881 ml 5645 ml Intake Oral 600 ml 579 ml 1179 ml IV Total 1257 ml 1240 ml 9466 ml Output Urine Total 550 ml 2700 ml 4900 ml Gastric Drainage Total 100 ml # Voids 6 6 # Bowel Movements 1 0 1 Exam General: Disheveled, obese man, calm HEENT: sclerae anicteric, oral mucosa moist Neck: Supple, Chest: Generally clear to auscultation Cardiac: S1S2, regular, no murmur Abdomen: BS diminished, non-tender Extremities: No pedal edema, Neuro: A&O, cranial nerves symmetric, motor strength 5/5, coordination normal, no rigidity Lab and Diagnostics Result Diagram: 10/27/16224410/27/162244 X-Rays, CTs and MRIs PROCEDURE: X-RAY CHEST ONE VIEW, PORTABLE ([id number]) IMPRESSION: 1. Placement of ETT. 2. Lung volumes are low interstitium is prominent. Developing mild edema cannot be excluded. Dictated by: Collins QUINTANA Interpreted: Gi Sanchez MD on 10/28/2016 at 8:49 PROCEDURE: X-RAY CHEST ONE VIEW ([id number]) IMPRESSION: 1. Support lines and tubes as above, the right IJ CVL tube tip is again not well -seen. 2. Interstitial opacity similar to prior examination suspect for mild pulmonary edema. Dictated by: Collins May RRA Interpreted: Gi Sanchez MD on 10/28/2016 at 13: 58 . 12-lead ECG Sinus rhythm rate 80. Low voltage. NV interval 0.14. QTC reported 539, but T waves are poorly defined. Assessment & Plan 51-year-old man with probable chronic schizophrenia resents with suicide gesture and acute toxic encephalopathy due to quetiapine overdose # Psychiatry, Suicide attempt. Patient continues with self-harm ideation. - Psychiatry consult to manage medications - Medically ready for discharge to psychiatric care # Possible QT prolongation. Current EKG is nondiagnostic due to low voltage; hence reported QTC is probably not accurate. Quetiapine is low risk for QTC prolongation related dysrhythmia -No need for further cardiac monitoring # Left ankle degenerative arthritis, chronic. X-rays from initial emergency room visit negative for fracture. Ankle had prior surgery due to trauma. Currently experiencing significant DJD related ankle pain. - Topical diclofenac one packet 4 times a day may be helpful - Oral ibuprofen as long as he has no gastric distress - No opioid analgesics Chronic, stable and/or resolving problems: # Toxic encephalopathy, acute. Quetiapine notorious for respiratory depression and hypotension. Gonzales pharmacology is alpha adrenergic blockade (hypotension) and anticholinergic effects (encephalopathy, visual disturbance, gut hypomotility, hyperthermia, urine retention, tachycardia), dopaminergic blockade (neuroleptic malignant, neuromuscular effects). Treatment is supportive. Activated charcoal was administered. Gastric lavage performed an EGD. He showed no evidence of anticholinergic syndrome. No evidence of neuroleptic malignant syndrome - Resolved # Toxic respiratory depression, acute. Intubation for respiratory airway protection for ~24 hours. -Resolved # Acute hypotension due to toxic autonomic dysfunction, acute. Blood pressure was 75/52. Subsequently received 6 L of fluid hydration. Initiated norepinephrine pressor support. Vital signs normalized within 24 hours. - Resolved # Type II diabetes mellitus - Suggest to continue capillary blood glucose twice daily; goal 140-200 - Okay to resume his outpatient metformin; suggest increase the dose to 2 pills twice per day (1000 twice a day) - I would add glimepiride 2 mg every morning if metformin is inadequate # Tobacco use - Nicotine patch # Possible seizure disorder - continue lamotrigine # Obesity class III - Appropriate nursing care and interventions # VTE prophylaxis - enoxaparin # Gastric prophylaxis - discontinue famotidine CODE STATUS is full. Patient is medically ready for discharge to psychiatric care. Pain Evaluation: Adequate Pain Control VTE Prophylaxis: Sub-Q Enoxaparin Resuscitation Status: CPR: Attempt Resuscitation Time spent 35 minutes Scout Valente MD Oct 30, 2016 16:20
[2016-10-30] MEDS ORDERED: PARoxetine 20 mg Tablet PO ONE ×2 (17:40→21:00)
[2016-10-30 18:10] VITALS: BP 134/83; PULSE 88; RESP 16
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
--- NOTE | 2016-10-31 02:49 | NUR ---
Observations 1900 to 0700 Pt was in his room when my shift started. Pt did come out to watch some TV for the rest of the night. pt first appeared asleep 22:00 and was observed every 15 minutes through the night as directed.
--- NOTE | 2016-10-31 06:50 | NUR ---
Sleep 11p-7a Adequate sleep through the night with no noted distress or awakening per protocol checks. Total sleep 8+ hours.
[2016-10-31] MEDS: PARoxetine 20 mg Tablet PO SCH (08:08)
[2016-10-31] MEDS: buPROPion XL 150 mg ER24 Tablet PO SCH (08:08)
--- NOTE | 2016-10-31 11:49 | NUR ---
[id number]. nurs. S: "I feel beat up.. but I slept better after I got meds this morning... the Dr is changing my meds around putting me back on prozac and tapering down the paxil withdrawing from that is the worst. " O: Pt reporting that his throat is sore from intubation procedure and is worst when swallows or coughs pt able to eat meals and has been out in DR watching TV. Pt had motrin with am sheduled meds and given cepacol for sore throat at lunch time. Pt reports hopeful re. new med plan and otherwise focused on recovery and resting. Addendum: 10/31/16 at 1927 by HEBER STEPHENS RN Pt continued out on unit, watching TV a lot in DR, not seeking interaction, talking with some peers when approached pt given motrin in afternoon and applies sheduled voltaran to his R injured ankle, pt's mood even behaviour controlled. P:CNCP
[2016-10-31] MEDS: Benzocaine-Menthol Lozenge 2/Pkg PO PRN (11:53)
--- NOTE | 2016-10-31 16:06 | PCM.PNPSY ---
Subjective Date of Service Oct 31, 2016 Subjective The patient reports that his mood is "kind of the same." He reports that his ankle is okay and he is ambulating on the unit with either a walker or wheelchair; he rates his pain as 8/10. We discussed increasing his Neurontin back to its outpatient dose and he was agreeable. We discussed increasing bupropion in the next couple of days to 300 mg daily. The patient was agreeable to this plan. Sleep: 8+ hours per staff. The patient reports "up every 20 minutes." Appetite: "Okay" Suicidal and homicidal ideation: Reports chronic passive suicidal ideation. Reports if discharged would potentially overdose again. Auditory hallucinations: Denies Visual hallucinations: Denies Other Psychotic Symptoms: Denies Anxiety: 03/14 Depression: 05/15 Current Medications Current Medications Benzocaine/Menthol 1 lozenge Q2H PRN PO Last administered on 10/31/16 11:53; Admin Dose 1 LOZENGE; Start 10/30/16 at 17:30 Bupropion HCl 150 mg DAILY PO Last administered on 10/31/16 08:08; Admin Dose 150 MG; Start 10/31/16 at 08:30; Stop 11/01/16 at 09:01 Gabapentin 600 mg TID PO Last administered on 10/31/16 08:11; Admin Dose 600 MG ; Start 10/30/16 at 20:30; Stop 10/31/16 at 12:39; Status DC Gabapentin 1,200 mg TID PO Last administered on 10/31/16 13:32; Admin Dose 1, 200 MG; Start 10/31/16 at 14:30 Ibuprofen 800 mg TID PRN PO Last administered on 10/31/16 14:06; Admin Dose 800 MG; Start 10/29/16 at 19:52 Insulin Human Lispro Nutritional Dose to be given pr... [facility] SUBQ Last administered on 10/30/16 11:41; Admin Dose 9 UNIT; Start 10/29/16 at 22:00; Stop 10/30/16 at 17:50; Status DC Metformin HCl 500 mg BIDWM PO Last administered on 10/30/16 17:37; Admin Dose 500 MG; Start 10/30/16 at 17:30; Stop 10/30/16 at 17:50; Status DC Metformin HCl 1,000 mg BIDWM PO Last administered on 10/31/16 08:09; Admin Dose 1,000 MG; Start 10/31/16 at 08:00 Paroxetine HCl 20 mg DAILY PO Last administered on 10/31/16 08:08; Admin Dose 20 MG; Start 10/31/16 at 08:30 Paroxetine HCl 30 mg NOW ONCE PO Last administered on 10/30/16 20:26; Admin Dose 30 MG; Start 10/30/16 at 17:40; Stop 10/30/16 at 17:55; Status DC Prazosin HCl 2 mg HS PO Last administered on 10/30/16 20:26; Admin Dose 2 MG; Start 10/30/16 at 21:00; Stop 10/31/16 at 21:01 Zolpidem Tartrate Start with 5 mg and may rep... HS PRN PO Last administered on 10/30/16 21:15; Admin Dose 5 MG; Start 10/30/16 at 17:30 Mental Status Exam Appearance: Unkept Attitude: Pleasant, Cooperative Behavior: No unusual behavior Affect: Restricted Mood: Dysthymic Thought Process/Associations: Logical/Sequential, Goal Directed Speech Production: Normal Speech Rate: Normal Speech Articulation: Normal Thought Content: Appropriate Danger to Self/Suicidal Ideati: Passive Danger to Others: None, Thoughts/Plans of Harming Others (some chronic passive of many years duration, no target.) Hallucinations: Auditory (Denies), Visual (Denies) Consciousness: Alert Orientation: Person, Place, Date, Situation Memory: Grossly Intact Estimate Intellectual Function: Average Attention/Concentration & Cogn: Grossly Intact Insight: Good Judgement: Limited Result Diagram: 10/27/165 10/27/165 Mental Health Plan The patient is a 51-year-old male with a history of depression and possible bipolar II disorder, who was admitted following an overdose on Quetiapine. He has been extubated and is considered medically stable. Since restarted paroxetine, his withdrawal symptoms from SSRI cessation have stopped. The patient reports that he is still not feeling safe in the community. Given his original presentation to the emergency room, and his current presentation, will discharge will likely prove problematic particularly if no other solution is available than [facility] or [facility]. [place] AXIS I 1. Major depression, recurrent, versus bipolar 2 disorder, most recent episode, depressed. 2. Anxiety disorder, unspecified. 3. Marijuana use disorder. AXIS II Deferred. AXIS III See past medical history. AXIS IV Severe with homelessness, little financial support and minimal social supports. AXIS V Global Assessment of Functioning 35. Medications Clonazepam 1 mg daily Paroxetine 20 mg daily 5 days then 10 mg daily 5 days then discontinue. Bupropion XL 150 mg daily 2 days then 300 mg daily Prazosin 2 mg by mouth nightly to increase tomorrow to 5 mg nightly. Hydroxyzine 50 mg by mouth every 4 hours when necessary anxiety Zolpidem 5 mg nightly when necessary insomnia may repeat 1. Medications to address General Physical Health Ibuprofen 800 mg 3 times a day as needed for pain Gabapentin 1200 mg 3 times a day Voltaren gel 4 times a day topical Metformin 1000 mg twice daily Treatments 1. The patient is admitted to the inpatient unit and will be provided a safe and secure environment. 2. The patient is reporting passive suicidality and is denying active suicidality and is not in need of a one-to-one at this time. He is agreeing to notify us should he have any acute suicidal or homicidal thoughts. 3. The patient is encouraged to participate with group and milieu activities. 4. The patient will be seen by the treatment team on a daily basis to assess symptoms, side effects and response to treatment. 5. The patient will be continued on as Wellbutrin XL and titrated to 300 mg daily. 6. Paroxetine will be tapered over the next 10 days. 7. Appreciates medical management of diabetes.. 8. Zolpidem tartrate 5 mg p.o. nightly p.r.n. insomnia. May repeat x1. 9. Hydroxyzine 50 mg by mouth every 4 hours when necessary anxiety. 10. Anticipated length of stay is 7-10 days. Edinson Gutierres MD Oct 31, 2016 16:06
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
--- NOTE | 2016-11-01 04:15 | NUR ---
Observations from [id number] Pt spent the evening watching tv. Pt did not attend wrap up group and appeared asleep and was asleep from [id number] and 0315-present. Pt has been monitored every 15 minutes as directed.
--- NOTE | 2016-11-01 06:18 | NUR ---
Nursing Noc Pt visible out on the unit watching tv. He participating in unit activities. Flat/depressed affect. Cooperative with care. He complains of ankle pain and received Motrin 800mg po prn @ 2208. He also received Ambien 5mg po prn with good effect. He did awaken briefly @ 0245 c/o nightmares. After speaking with nursing staff he concluded the dreams were from leaving his nicotine patch on overnight. He stated "I am taking that patch off right now! Thanks for letting me know!" Pt quickly returned back to bed for a total of 7+ hours sleep.
[2016-11-01] MEDS: hydrOXYzine Pamoate 25 mg Capsule PO PRN ×2 (07:08→22:27)
[2016-11-01] MEDS: Benzocaine-Menthol Lozenge 2/Pkg PO PRN ×3 (07:11→22:28)
[2016-11-01] MEDS: PARoxetine 20 mg Tablet PO SCH (07:43)
[2016-11-01] MEDS: buPROPion XL 150 mg ER24 Tablet PO SCH (07:43)
[2016-11-01 10:27] VITALS: BP 134/81; PULSE 92; RESP 12
--- NOTE | 2016-11-01 13:30 | NUR ---
Nursing note 7-3pm S)" I am working with [facility] they think I can go to a crisis center" O)Pt out of room attending some groups reports depression and anxiety 06/14 "I am always depressed" and high suicidal ideation though will keep himself safe here, thinks he will be discharged on Tuesday this week, eating meals, c/o dry throat given lozenge "it was that tube they had in my throat" A) depressed, anxious, cooperative with mediation P) encourage participation in treatment and monitor medication effectiveness
--- NOTE | 2016-11-01 14:55 | NUR ---
[employer]./ c.m. S.:"I'm feeling terrible. My ankle hurts!" O.: met with pt. in the Dining room. He was sitting comfortably in TV area and was watching TV. He was upset for being interrupted. He complained about pain in his ankle. Director Of Professional Services pointed out to pt. that he was in a psychiatric unit and we would need to talk about his mental health. Pt. denied SI/HI, denied AH/VH or paranoid/delusional thoughts. He rated depression at 10/10 but than reduced it to 8/10. He rated anxiety at 7/10. Pt.'s therapist Shruti Shepherd ([facility] in [facility]) called and talked to pt. and the keno writer/runner expressing her confusion about pt.'s mental status. Pt. has follow up appt. with Shruti Carlisle on November 08 @ 15:00. He also has follow up appt. for meds with GERMANIA Rivas on November 15 @ 13:00 at [facility] in [facility] too. A.: pt. is cooperative, isolative, has a short temper, gamy and has unpredictable behavior. P.: monitor behavior, work on emotional regulation and stress management; follow care plan.
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
--- NOTE | 2016-11-02 01:56 | NUR ---
Observations 1900 to 0700 Pt watched some TV for the entire evening. Pt did attend wrap up group. Pt first appeared asleep 23:15 and was observed every 15 minutes through the night as directed.
--- NOTE | 2016-11-02 05:23 | NUR ---
[facility] 11pm to 7am Pt slept until 2:00am, got up to get a drink and went back to bed. In no acute distress. Monitored with q 15 checks for safety, location and accountability. Addendum: 11/02/16 at 0617 by MERLE WISE RN Awoke w/ CERON pain rated 10/10, also c/o sore throat and beginning of a cold sore. He received Ibuprofen 800mg po, cepacol lozenge and Hydroxyzine 50mg po prn @ 0614. Oncoming shift to assess medication efficacy.
[2016-11-02] MEDS: hydrOXYzine Pamoate 25 mg Capsule PO PRN ×3 (06:14→22:02)
[2016-11-02] MEDS: Benzocaine-Menthol Lozenge 2/Pkg PO PRN ×3 (06:14→19:40)
[2016-11-02 06:18] VITALS: BP 120/79; RESP 16
[2016-11-02] MEDS: PARoxetine 20 mg Tablet PO SCH (07:28)
[2016-11-02] MEDS: buPROPion XL 300 mg ER24 Tablet PO SCH (07:28)
[2016-11-02 10:03] VITALS: BP 124/83; PULSE 95; RESP 18
--- NOTE | 2016-11-02 12:25 | NUR ---
nursing note 7am-7pm S)"the Dr says discharge by Tuesday" O)pt reports anxiety 03/14 and depression 06/14 also states "I am always suicidal" though is contracted for safety while on unit, sits with selected peers in TV area, took shower, states ankle pain is 04/14, stated became upset with another patient outburst during a group, did talk to another staff member about it and did not act on anger impulse, ate meals, compliant with medications A)cooperative, anticipating DC in a few days, anxious and depressed P) monitor effectiveness of mediations, encourage participation in treatment
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
--- NOTE | 2016-11-02 20:24 | NUR ---
Obs Dayshift [id number] Pt spent most of the day in the milieu, engaged a little more today w/ some peers. Pt is calm, quiet, reserved. Pt only participates in groups if the TV is turned off and staff push his involvement. Pt washed clothing and showered today. Better eye contact w/ staff. Pt stated that he had some anxiety in the morning and went to his room to distance himself from others. Good ADL's, Good meals
--- NOTE | 2016-11-03 02:27 | NUR ---
Observations 1900 to 0700 Pt watched some TV for the entire evening. Pt did attend wrap up group. Pt first appeared asleep 23:30 and was observed every 15 minutes through the night as directed.
--- NOTE | 2016-11-03 06:11 | NUR ---
Nursing Noc Pt up watching movie in evening without obvious anxiety or distress. Ambien x 1 used to assist with sleep and noted to be effective until 0400 when patient was up for snack then straight back to sleep at 0415. Zero report of nightmares or disturbing dreams. Continuing to monitor mood behavior, and emotional state, by Q15 minute safety checks.
[2016-11-03] MEDS: hydrOXYzine Pamoate 25 mg Capsule PO PRN ×2 (07:25→21:56)
[2016-11-03] MEDS: PARoxetine 20 mg Tablet PO SCH (07:56)
[2016-11-03] MEDS: buPROPion XL 300 mg ER24 Tablet PO SCH (08:09)
[2016-11-03 14:48] VITALS: BP 117/77; PULSE 83; RESP 16
--- NOTE | 2016-11-03 15:16 | NUR ---
Obs Dayshift Pt spends most of his day in front of the TV, or in bed napping. Pt has very little participation on the unit. Very minimal participation in morning meeting and wrap up. Engages well w/ peers when approached. Pt is calm, polite on the unit. Pt is mostly interested in TV, food and sleep. Ok ADL's, Good meals
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
[2016-11-03] MEDS: Benzocaine-Menthol Lozenge 2/Pkg PO PRN (15:58)
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
--- NOTE | 2016-11-04 05:41 | NUR ---
Nursing Noc Pt remains pleasant and cooperative. Reports one main concern is housing, but understands its difficult to acquire housing in [place]. Pt appeared to be sleep at 2315 and awoke once in the night for snack. Pt returned to bed for the rest of the shift.
[2016-11-04] MEDS: PARoxetine 20 mg Tablet PO SCH (08:31)
[2016-11-04] MEDS: Benzocaine-Menthol Lozenge 2/Pkg PO PRN (08:33)
[2016-11-04] MEDS: hydrOXYzine Pamoate 25 mg Capsule PO PRN ×2 (08:33→20:12)
[2016-11-04] MEDS: buPROPion XL 150 mg ER24 Tablet PO SCH (08:34)
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
--- NOTE | 2016-11-04 18:05 | NUR ---
[facility] [[email or web address]] Day Shift Pt maintained behavioral control throughout the shift. Pt affect appears euthymic. Pt spends most of the shift watching TV in the dining room and lightly interacting with peers. Pt is pleasant and appropriate with staff and peers when active on the unit. Pt does not express any interest in participating in unit group activities, but is not unpleasant or antisocial. Pt attended community meeting in the AM. Pt attended all meals and ate approx 100% of all meals.
--- NOTE | 2016-11-04 18:41 | NUR ---
[id number]. nurs. S/O: Pt staying out in DR and watching a lot of TV. Pt pleasant and communicative on approach, asks for sheduled meds at timely intervals and reports that they are helping maintain satisfactory pain control. Pt reports that it is time for him to leave and is going to return to [facility] to find housing and services. Reports that he know [facility] and will start there, reporting that it is very well provisioned with donations. 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 A: Pt reports has benefitted from time here and states "I have to stay positive." Pt is future focused and making self care plan. P:CNCP
--- NOTE | 2016-11-05 04:29 | NUR ---
Pt out on unit most of shift interacting watching TV. Asleep at 2300. Pt observed every 15 minutes as ordered.
[2016-11-05] MEDS: hydrOXYzine Pamoate 25 mg Capsule PO PRN ×2 (05:29→08:05)
--- NOTE | 2016-11-05 06:00 | NUR ---
Nursing Noc Pt appeared pleasant and cooperative with plan. Interacting with staff and patients appropriately. Plan for discharge today, Pt needs taxi to bus station at 0930
[2016-11-05] MEDS: buPROPion XL 150 mg ER24 Tablet PO SCH (07:58)
[2016-11-05] MEDS ORDERED: PARoxetine 20 mg Tablet PO SCH (08:30)
[2016-11-05] MEDS ORDERED: METF500T PO (09:00)
[2016-11-05] MEDS ORDERED: GABA400C PO (09:00)
[2016-11-05] MEDS ORDERED: ALBU2.5V4 NEB (09:00)
[2016-11-05] MEDS ORDERED: PRAZ5CAP PO (09:00)
[2016-11-05] MEDS ORDERED: BUPR-97 PO (09:00)
--- NOTE | 2016-11-05 12:15 | NUR ---
Nursing Discharge- Pt. was discharged at 0940 today. He was walked to the bus stop and planned to go to [facility] were he had requested his prescriptions be sent. Pt. denied suicidal thoughts. He had slept 8 hours last night per report. The Pt. appeared upbeat and was positive about his future plans. He expressed an understanding of his medication and follow up plans. Pt's home medications wwere returned to him along with his other belongings.
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
--- NOTE | 2016-11-05 19:26 | NUR ---
Perioperative Nurse/Counselor: S/O: Patient slept 6.5 hours last night per staff. Patient denied S/I and H/I. He also denied auditory and visual hallucinations. Out-patient appointments: Shruti Shepherd, counselor [facility], 11/08/16 at 3:00pm and GERMANIA Caldwell, prescriber [facility], 11/15/16 at 1:00pm. A: Patient is cooperative, hopeful, fair insight, fair judgement. P: Follow care plan, coordinate with out-patient providers.
== END 2016-11-05 09:40 | disposition home or self-care (01) | DRG 751 ==
LOC: SED 22:16 → CCU 10-28 06:30 → PCC 10-29 14:30 → MHC 10-30 16:26
PROVIDERS: ADMIT Hospitalist; ATTEND Internal Medicine
PROC: 0BH17EZ Insertion of Endotracheal Airway into Trachea, Via Natural or Artificial Opening (ICD-10-PCS; principal; 2016-10-27)
PROC: 5A1945Z Respiratory Ventilation, 24-96 Consecutive Hours (ICD-10-PCS; 2016-10-27)
PROC: 4A033R1 Measurement of Arterial Saturation, Peripheral, Percutaneous Approach (ICD-10-PCS; 2016-10-27)
DX: F33.3 Major depressive disorder, recurrent, severe with psychotic symptoms (principal); J96.01 Acute respiratory failure with hypoxia; G92 Toxic encephalopathy; I95.9 Hypotension, unspecified; Z68.41 Body mass index [BMI] 40.0-44.9, adult; E66.01 Morbid (severe) obesity due to excess calories; E11.9 Type 2 diabetes mellitus without complications; T43.592A Poisoning by other antipsychotics and neuroleptics, intentional self-harm, initial encounter; F17.210 Nicotine dependence, cigarettes, uncomplicated; R00.0 Tachycardia, unspecified; Z79.4 Long term (current) use of insulin; F41.9 Anxiety disorder, unspecified; Z59.0 Homelessness

== ENCOUNTER 2016-11-12 19:25 | Inpatient (IN) | payer MEDICAID, OTHER ==
[~2016-11-12] VITALS: Ht 182.9 cm; Wt 150.0 kg
[~2016-11-12 19:25] MED LIST: ALBU2.5V4 NEB; BUPR-97 PO; GABA400C PO; METF500T PO; PRAZ5CAP PO
[2016-11-12 19:49] VITALS: BP 175/100; PULSE 91; RESP 16; O2SAT 97
[2016-11-12 20:25] LABS: Mean Corpuscular Hemoglobin 31.8 pg (27.0-35.0); Mean Corpuscular Volume 92.7 fL (81-100); NEUTROPHILS % (AUTO) 68.9 % (40-74); Platelet Count 327 bil/L (150-400)
[2016-11-12 20:26] LABS: BASOPHILS % (AUTO) 0.2 % (0-3); EOSINOPHILS % (AUTO) 0.4 % (0-5); MONOCYTES % (AUTO) 7.4 % (4-12)
--- NOTE | 2016-11-12 20:49 | ED.REPORT ---
HPI-Psychiatric Illness Date of Service Nov 12, 2016 ED Provider: Meño Fierro MD Pt is a 51 y/o male w/ a hx of chronic schizophrenia, major depression, anxiety , bipolar disorder, suicide attempt (OD on Seroquel), presenting to the ED c/o suicidal ideation onset today. The patient was recently seen in the ED after overdosing on Seroquel after he was told to leave the ED. During that visit, he required intubation for mental status changes and respiratory failure and was admitted to the CCU. His admission was from Oct 28 - November 05 at which point he was diagnosed with the above psychiatric illnesses. He has been feeling suicidal today with plan to OD on Seroquel again. He denies illicit drug or alcohol use. He denies any attempt today. He denies any medical complaints. Nursing Notes Stated Complaint: SUICIDAL Chief Complaint: Psychiatric Complaint Nursing Notes Reviewed: Yes Allergies: Coded Allergies: No Known Allergies (Unverified , 11/12/16) Scheduled Bupropion ER (Wellbutrin XL) 150 Mg Tab.er.24h 450 MG PO DAILY Gabapentin (Neurontin) 400 Mg Capsule 1,200 MG PO TID Metformin (Glucophage) 500 Mg Tablet 1,000 MG PO BIDWM Prazosin (Minipress) 5 Mg Capsule 5 MG PO HS Scheduled PRN Albuterol Neb Soln (Albuterol Neb Soln) 2.5 Mg/3 Ml Vial.neb 2.5 MG NEB Q4H PRN PRN For Shortness of Breath General Time Seen by MD: 19:59 Chief Complaint Suicidal ideation Hx Obtained From: Patient Arrived By: Walk-in Onset Occurred: 5 - 8 hours ago Symptom Duration: Since onset Progression Since Onset: Constant Severity: Current: No pain currently Severity: Maximum: No pain Similar Sx Previous: Yes Risk-Psychiatric Illness Suicide Risk Stratification RF Statements: Risk factors reviewed Past Medical History Past Medical History Chronic schizophrenia Major depression Anxiety Bipolar disorder Suicide attempt - OD on Seroquel NIDDM Arthritis Past Surgical History ankle surgery L leg repair x2 Smoking History Current Every Day Smoker Social History Alcohol Use: Denies alcohol use Drug Use: THC Occupation no work or school, lives with roommate,1 step into the house. Ambulatory Status Crutches Review of Systems Constitutional: Denies: Chills, Fever Respiratory: Denies: Non-productive cough, Shortness of breath Cardiovascular: Denies: Chest pain, Dyspnea on exertion GI: Denies: Abdominal pain, Nausea, Vomiting Psychiatric: Reports: Suicidal ideation, Denies: Homicidal ideation Complete sys rev & neg: except as marked. Physical Exam Initial Vital Signs Vital Signs (First) Date Time Temp Pulse Resp B/P Pulse Ox O2 Delivery O2 Flow Rate FiO2 11/12/16 19:49 36.8 91 16 175/100 97 Room Air Initial VS: Reviewed, Vital signs abnormal Head / Eyes: Atraumatic, Normocephalic, PERRL ENT: Mucous membranes moist, Conjunctiva normal, No scleral icterus Neck: Supple, Full range of motion Respiratory: Breath sounds normal, Clear to auscultation, No respiratory distress Cardiovascular: Regular rate & rhythm, Heart sounds normal, Intact distal pulses Abdomen / GI: Soft, Non-tender Extremities: Vascular intact, Neuro intact, No swelling, No tenderness Skin: Warm, Dry, No cyanosis General/Constitutional: Awake, Alert, No acute distress, Cooperative, Not toxic appearing Neurologic: Oriented X3, Speech NL, No motor deficits, No sensory deficits, Memory NL Psychiatric: Not homicidal, No hallucinations, Cognitive function NL Abnormal Mood/Affect: Positive: Flat affect Abnormal Thinking / Perception: Positive: Suicidal, with plan Interpretation & Diagnostics Lab Results Interpretation Result Diagram: 11/12/16201411/12/16 2015 Test 11/12/16 20:15 11/12/16 21:57 White Blood Count 13.8th/mm3 (3.8-10.1) Red Blood Count 5.35mil/mm3 (4.40-5.80) Hemoglobin 17.0g/dL (13.8-17.2) Hematocrit 49.6% (41.0-50.0) Mean Corpuscular Volume 92.7fL (81-100) Mean Corpuscular Hemoglobin 31.8pg (27.0-35.0) Mean Corpuscular Hemoglobin Concent 34.3% (32.0-37.0) Red Cell Distribution Width 13.4% (12.3-15.4) Platelet Count 327bil/L (150-400) Neutrophils (%) (Auto) 68.9% (40-74) Lymphocytes (%) (Auto) 21.4% (14-46) Monocytes (%) (Auto) 7.4% (4-12) Eosinophils (%) (Auto) 0.4% (0-5) Basophils (%) (Auto) 0.2% (0-3) Sodium Level 135mEq/L (134-144) Potassium Level 4.5mEq/L (3.5-5.2) Chloride Level 94mEq/L (97-108) Carbon Dioxide Level 26mmol/L (18-29) Blood Urea Nitrogen 22mg/dL (6-24) Creatinine 1.06mg/dL (0.76-1.27) Estimat Glomerular Filtration Rate 79mL/min (>59) Glucose Level 147mg/dL (60-99) Calcium Level 9.8mg/dL (8.5-10.1) Total Bilirubin 0.5mg/dL (0.0-1.2) Aspartate Amino Transf (AST/SGOT) 26U/L (0-50) Alanine Aminotransferase (ALT/SGPT) 43U/L (0-44) Alkaline Phosphatase 73U/L (25-150) Total Protein 8.6g/dL (6.4-8.4) Albumin 5.1g/dL (3.4-5.0) Thyroid Stimulating Hormone (TSH) 1.800uIU/mL (0.450-4.500) Hold Tripathi Top Tube Received (Received) Hold Urine Received (Received) Re-Eval/Medical Decision Med Decision/Clinical Course 51-year-old male history of schizophrenia, bipolar, depression, recent suicide attempt with seroquel requiring intubation is not in complaining of suicidal ideation today. He plans on taking his Seroquel overdose. He feels depressed. dye worker was unable to evaluate him this evening due to time constraints and he will be evaluated tomorrow morning as he is voluntary. Patient be signed out to Dr Spears. I gave him his home medications. Counseled Regarding: Diagnosis, Lab results Discharge & Departure Discharge Condition All VS Reviewed: Yes Condition: Stable Referrals: [facility] (PCP) [facility] Portions of this note were transcribed by Jamie Olsen. I, Dr. Fierro personally performed the history, physical exam and medical decision-making; I reviewed and confirmed the accuracy of the information in the transcribed note. Signed by Vivek Flowers, 11/12/16 - 2199 Meño Fierro MD Nov 12, 2016 20:49 JAMIE OLSEN Nov 12, 2016 20:58
[2016-11-13] VITALS (7 sets, daily range): BP systolic 98–180; BP diastolic 61–99; PULSE 71–92; RESP 14–20; O2SAT 96–98
[2016-11-13] MEDS ORDERED: buPROPion XL 150 mg ER24 Tablet PO ONE (01:05)
[2016-11-13] MEDS ORDERED: buPROPion XL 300 mg ER24 Tablet PO ONE (01:05)
[2016-11-13] MEDS ORDERED: lamoTRIgine 100 mg Tablet PO ONE ×2 (01:05→09:00)
[2016-11-13] MEDS ORDERED: METF500T PO (08:45)
[2016-11-13] MEDS ORDERED: KLO1T PO (08:47)
[2016-11-13] MEDS ORDERED: LAMO200T2 PO (08:48)
[2016-11-14 05:35] VITALS: BP 101/66; PULSE 88; RESP 18; O2SAT 97
[2016-11-14] MEDS ORDERED: lamoTRIgine 100 mg Tablet PO SCH (09:05)
[2016-11-14] MEDS ORDERED: Albuterol 2.5 mg/3 mL Inhalation Solution NEB PRN (09:05)
[2016-11-14] MEDS ORDERED: buPROPion XL 150 mg ER24 Tablet PO SCH (09:05)
[2016-11-14 10:06] VITALS: BP 132/89; PULSE 89; RESP 18; O2SAT 97
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
[2016-11-14 16:10] VITALS: BP 133/86; PULSE 86; RESP 18; O2SAT 97
[2016-11-14 19:12] VITALS: BP 134/90; PULSE 83; RESP 18; O2SAT 96
[2016-11-15] MEDS ORDERED: Alum-Mag Hydrox-Simeth 30 mL Suspension PO PRN (00:40)
[2016-11-15] MEDS ORDERED: Magnesium Hydroxide 10 mL Oral Concentration PO PRN (00:40)
[2016-11-15] MEDS ORDERED: Benzocaine-Menthol Lozenge 2/Pkg PO PRN (00:40)
[2016-11-15] MEDS: hydrOXYzine Pamoate 25 mg Capsule PO PRN ×3 (01:02→22:08)
[2016-11-15] MEDS: lamoTRIgine 100 mg Tablet PO SCH (08:08)
[2016-11-15] MEDS: BUPROPION PO SCH ×2 (08:09)
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
[2016-11-16] MEDS: lamoTRIgine 100 mg Tablet PO SCH (08:41)
[2016-11-16] MEDS: BUPROPION PO SCH ×2 (08:42)
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
[2016-11-16 17:41] VITALS: BP 122/75; PULSE 92; RESP 16
[2016-11-16] MEDS: hydrOXYzine Pamoate 25 mg Capsule PO PRN (22:04)
[2016-11-17] MEDS: lamoTRIgine 100 mg Tablet PO SCH (08:02)
[2016-11-17] MEDS: BUPROPION PO SCH ×2 (08:02)
[2016-11-17] MEDS ORDERED: ZLP5T PO (11:55)
[2016-11-17] MEDS ORDERED: KLO1T PO (11:55)
[2016-11-17 12:00] VITALS: BP 125/73; PULSE 89; RESP 18
--- NOTE | 2016-11-17 12:04 | PCM.DIMED ---
Discharge Instructions Date of Service Nov 17, 2016 Dates of Hospitalization Nov 14, 2016 at 21:25 Discharge Diagnosis Discharge Diagnosis 1. Factitious disorder 2. Depression unspecified rule out secondary to substance abuse, rule out adjustment disorder, rule out major depressive disorder 3. Marijuana use disorder. 4. History of methamphetamine abuse [place] II. Antisocial personality disorder [place] III. Left ankle degenerative arthritis, noninsulin-dependent diabetes. [place] IV. Severe, with homelessness, little financial support and minimal social support. [place] V. Current Global Assessment of Functioning equal to 50 Medication Instructions I Strongly encouraged patient to follow up with outpatient care: 1-Recommended patient takes medication as prescribed and not alter this unless under the direct care of a provider: Wellbutrin XL 450 mg daily for depression Gabapentin 1200 mg 3 times a day for impulse control and pain Lamictal 1200 mg daily impulse control and pain Metformin 500 twice a day for diabetic management Prazosin 5 at bedtime for nightmares and insomnia Klonopin 0.5 mg by mouth at bedtime 10 days to taper off benzodiazepines then discontinue Ambien 5 mg at bedtime 14 days to taper off sedative hypnotic then discontinue 2-Recommend client refrain from recreational drugs and alcohol while taking psychiatric medications. 3-Recommend client start a 12 step program to deal with issues of addiction. Recommend patient attend 90 NA meetings in 90 days 4-Recommend patient attempt to find a therapist or group to deal with impulse control and interpersonal relationship conflicts Diet Diabetic Activity No restrictions Call your provider Fever or Chills, Vomitting Patient Instructions Outpatient follow-up for therapy and medications being arranged per registered nurse hh case manager HYACINTH for [facility] appointment in [place] Follow-up with PCP in: 2 weeks Dev Read MD Nov 17, 2016 12:04
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
== END 2016-11-17 14:10 | disposition home or self-care (01) | DRG 756 ==
LOC: SED 19:25 → MHC 11-14 21:25
PROVIDERS: ADMIT Psychiatry & Neurology Psychiatry; ATTEND Psychiatry & Neurology Psychiatry
DX: F68.11 Factitious disorder imposed on self, with predominantly psychological signs and symptoms (principal); F32.9 Major depressive disorder, single episode, unspecified; E11.9 Type 2 diabetes mellitus without complications; F60.2 Antisocial personality disorder; Z59.0 Homelessness; F17.210 Nicotine dependence, cigarettes, uncomplicated; F41.9 Anxiety disorder, unspecified